=== PATIENT | male | born 1955 | race Caucasian/White ===

== ENCOUNTER 2016-09-12 06:35 | Day surgery (SDC) | payer OTHER ==
[2016-09-09 16:58] VITALS: BMI 21.7
[2016-09-12] MEDS ORDERED: oxyCODONE HCL 10 MG SUSTAINED ACTING TABLET PO STA (06:58)
[2016-09-12] MEDS ORDERED: oxyCODONE HCL 10 MG SUSTAINED ACTING TABLET ONE (07:07)
--- NOTE | 2016-09-12 07:14 | HP ---
History & Physical Update - History History: No Change - Physical Physical: No Change - Assessment Assessment: No Change - Plan Plan: No Change
[2016-09-12] MEDS ORDERED: methylPREDNISolone ACET (DEPO) 40 MG/1 ML VIAL ONE (07:22)
[2016-09-12] MEDS ORDERED: THROMBIN (BOVINE) 5,000 UNIT VIAL TP ONE ×2 (07:22→10:24)
[2016-09-12] MEDS ORDERED: GUM MASTIC/STORAX/MSAL/ALCOHOL 1 DRP DROPSBTL MC ONE (07:23)
[2016-09-12] MEDS ORDERED: ceFAZolin SODIUM 1 GM VIAL ONE (08:04)
[2016-09-12] MEDS ORDERED: MIDAZOLAM HCL 2 MG/2 ML SINGLE DOSE VIAL ONE ×3 (08:05→09:12)
[2016-09-12] MEDS ORDERED: BUPIVACAINE HCL/PF 0.5% (5MG/ML) 10 ML VIAL ONE (08:24)
[2016-09-12] MEDS ORDERED: PROPOFOL 20 ML ONE ×4 (08:56→09:27)
[2016-09-12] MEDS ORDERED: LIDOCAINE 1%/EPI 1:100000 (50 ML MULTI DOSE VIAL) INF ONE (09:00)
[2016-09-12] MEDS ORDERED: KETAMINE HCL 200 MG/20 ML VIAL ONE (09:23)
[2016-09-12] MEDS ORDERED: LIDOCAINE HCL 1%, 10 MG/ML (20ML VIAL) ONE (09:39)
[2016-09-12] MEDS ORDERED: ACETAMINOPHEN 1000 MG/100 ML VIAL (NON FORMULARY) IVPB ONE (09:44)
[2016-09-12] MEDS ORDERED: LACTATED RINGERS SOLUTION 1,000 ML IV SCH (09:45)
[2016-09-12] MEDS ORDERED: LIDOCAINE HCL 1%, 10 MG/ML (50 mL VIAL) IJ ONE (09:55)
[2016-09-12] MEDS ORDERED: BUPIVACAINE HCL/PF 2.5 MG/ML - 30 ML VIAL IJ ONE (10:12)
[2016-09-12] MEDS ORDERED: methylPREDNISolone ACET (DEPO) 40 MG/1 ML VIAL IM ONE (10:23)
[2016-09-12] MEDS ORDERED: BUPIVACAINE HCL/PF 0.25% (2.5MG/ML) 10 ML VIAL IJ ONE (10:23)
--- NOTE | 2016-09-12 10:51 | OP ---
Operative Note - Note: Operative Date: 09/12/16 Pre-Operative Diagnosis: Spinal stenosis; Lumbar radiculopathy Operation: Lumbar laminectomy/facetectomy/foraminotomy L4-L5 Post-Operative Diagnosis: Same as Pre-op Surgeon: Phillip Campoverde Senior Clinician: Raj Medina Anesthesiologist/CHUCKING MACHINE SET UP OPERATOR TOOL: Chava Najera Anesthesia: Spinal Estimated Blood Loss (mls): 20 Fluid Volume Replaced (mls): 900 Operative Report Dictated: Yes
--- NOTE | 2016-09-12 10:53 | SURG ---
Surgery Certified Medical Technician Assistant Note Certified Medical Technician Assistant: Raj Medina PA-C Date of Service: 09/12/16 Diagnosis: Spinal stenosis, Lumbar radiculopathy Procedure: CPT 62325: Lumbar laminectomy/facetectomy/foraminotomy L4-L5 I was present for the entirety of the operative procedure. For further detail, please refer to operative report. Visit type - Case Type Case Type: Scheduled Admission - New patient This patient is new to me today: Yes Date on this admission: 09/12/16
[2016-09-12] MEDS ORDERED: oxyCODONE HCL 5 MG TABLET PO PRN (11:50)
[2016-09-12] MEDS ORDERED: ONDANSETRON 4 MG/2 ML VIAL IVPUSH PRN (11:50)
[2016-09-12] MEDS ORDERED: PROMETHAZINE HCL 25 MG/1 ML VIAL IVPUSH PRN (11:51)
[2016-09-12 12:58] VITALS: TEMP 98.4
[2016-09-12 15:35] VITALS: BP 126/74; PULSE 78
--- NOTE | 2016-09-12 20:03 | OP ---
DATE OF OPERATION: 09/12/2016 PREOPERATIVE DIAGNOSIS: Spinal stenosis L4-5. POSTOPERATIVE DIAGNOSIS: Spinal stenosis L4-5. PROCEDURE PERFORMED: Laminectomy, L4-5. SURGEON: Phillip Campoverde M.D. DYNAMOMETER TESTER ENGINE: Luz Negron ESTIMATED BLOOD LOSS: 50 mL. INTRAVENOUS FLUIDS: Per anesthesia. ANESTHESIA: Spinal. COMPLICATIONS: There were none. DISPOSITION: Patient brought to the PACU in stable condition. INDICATION FOR SURGERY: The patient is a 61-year-old gentleman who has been suffering from pain from his back down his leg. X-rays and MRI were completed, which noted he has spinal stenosis at L4-5. He had gone through an exhaustive course of treatment for this which included medications, physical therapy, as well as injections. Unfortunately, his pain continued to persist in spite of all this. At this point, risks, benefits, and alternatives were discussed and the patient consented to surgery. OPERATIVE NOTE: Patient is brought to the operating room by the anesthesia staff. After appropriate patient identification is performed, spinal anesthesia was given. The patient was placed prone onto the Neal frame with all areas of bony prominences well padded at this time. Two needles were placed into his back to tenzin off the L4-5 level, and x-ray is taken to confirm this is correct. Crockett were removed, and 10 mL of lidocaine with epinephrine was injected into his back at this time. His back was prepped and draped in a sterile manner. At this point timeout was completed. An incision was made from the top of L4 down to the bottom of L5. Dissection was carried down to the fascia. Fascia was then split open at this time, and appropriate retractors were then placed in. Then a spinal needle was placed onto the L4 lamina to tenzin off the L4-5 level. An x-ray was taken to confirm this was correct. The needle was removed, and the microscope was brought in. At this point, the interspinous ligament at L4-5 was removed. A portion of the L4-L5 spinous process was removed, and portions of the lamina were removed. The nerve roots were identified, it was removed. A complete decompression was performed such that by the end of the procedure both L5 nerve roots appear to be well decompressed. All bleeding was well controlled at this time. Steroids were placed over the nerve root, Floseal was placed over that. The fascia was closed with a number 1 Vicryl suture. The subcutaneous tissue was closed with 2-0 Vicryl suture. Skin was closed with 3-0 Monocryl suture. Dermabond was applied. Steri-Strips were applied. Sterile dressing was applied. Patient was placed supine on OR bed, and brought to the PACU in stable condition. Maye MCCLAIN/[id number] MTDD
== END 2016-09-12 15:37 | disposition home or self-care (01) ==
LOC: FASU 06:35
PROVIDERS: ATTEND Orthopaedic Surgery Orthopaedic Surgery of the Spine
PROC: 01NB0ZZ Release Lumbar Nerve, Open Approach (ICD-10-PCS; 2016-09-12)
PROC: 0SB20ZZ Excision of Lumbar Vertebral Disc, Open Approach (ICD-10-PCS; principal; 2016-09-12 08:15)
DX: M48.06 Spinal stenosis, lumbar region (principal)
CPT/HCPCS: 72100-TC; 76000-TC; 94760